=== PATIENT | male | born 1975 | race Caucasian/White ===

== ENCOUNTER 2023-07-13 15:29 | Emergency (ER) | payer OTHER, SELFPAY ==
[2023-07-13 15:33] VITALS: BP 175/116
--- NOTE | 2023-07-13 15:37 | ED.GENMED ---
History of Present Illness
<RICHA Hernandez - Last Filed: 07/13/23 18:46>
General
Chief Complaint: Allergic Reaction
Source: patient
Exam Limitations: none
Time Seen by Provider: 07/13/23 15:37
Nursing documentation reviewed up to this point in time: agreed with
Travel History
Have you had any contact with someone who has COVID-19?: No
Do you have any symptoms of coronavirus? Fever > 100 degrees, chills, cough, shortness of breath, sore throat, loss of taste or smell, muscle aches, or headache?: No
History of Present Illness
History of Present Illness:
47-year-old male presents to the ER for evaluation. Patient reports he woke up this morning and felt that his job was in spasm, especially the left side of his jaw. He is on Haldol 5 mg every day but believes he took 2 yesterday and may be 2
today. He has been able to eat and drink today . He complains of jaw pain/spasm sensation .
Past History
<RICHA Hernandez - Last Filed: 07/13/23 18:46>
Past History
ED Past Medical History: GERD, Psychiatric (Anxiety, Depression) and Other (Spinal stenosis, Back and neck pain, Sciatic Tingling arms and legs, Ulcers)
ED Past Surgical History: Orthopedic (Left wrist surgery) and Other (Hernia repair)
Social History
Tobacco: Former smoker
Alcohol: Occasional
Drug: None
Personal: Single
Living: with family
Review of Systems
<RICHA Hernandez - Last Filed: 07/13/23 18:46>
Review of Systems
Allergies reviewed?: Yes
All Other Systems: ROS reviewed and negative except as documented in HPI and ROS
Constitutional: Reports no symptoms; Denies fever, fatigue or chills
EENT: Reports other (jaw pain )
Respiratory: Reports no symptoms; Denies trouble breathing
Cardiac: Reports no symptoms
ABD/GI: Reports no symptoms; Denies abdominal pain, nausea or vomiting
: Reports no symptoms
Musculoskeletal: Reports no symptoms
Skin: Reports no symptoms
Neurological: Reports no symptoms
Psychiatric: Reports no symptoms
Phy Exam
<RICHA Hernandez - Last Filed: 07/13/23 18:46>
General Physical Exam
General Presentation: no apparent distress
General age: appears stated age
General Skin: warm and dry
General Habitus: normal
General Mental: alert
General Hydration: appears well hydrated
ENT Exam
ENT Exam: other (pt's jaw in a spasm;however pt able to open mouth )
Cardiovascular Exam
Cardiovascular Exam: tachycardia
Pulmonary Exam
Pulmonary Exam: lungs clear and no respiratory distress
Neurological Exam
Neurological Exam: alert and oriented x3
Musculoskeletal Exam
Musculoskeletal Exam: full ROM
Skin Exam
Skin Exam: normal color and warm/dry
Psychiatric Exam
Psychiatric Exam: normal mood/affect
Course
<RICHA Hernandez - Last Filed: 07/13/23 18:46>
Orders/Labs/Results
Orders:
Orders
07/13/23 15:45
Diphenhydramine [Benadryl] 50 mg .ROUTE .STK-MED ONE
07/13/23 15:51
0.9% Sodium Chloride 1000 ml [Nss] 1,000 ml IV BOLUS
diazePAM [Valium Injection] 5 mg IV NOW STA
07/13/23 16:17
Diphenhydramine [Benadryl] 25 mg IV NOW STA
Vital Signs
Initial and Last Documented VS:
Initial Vital Signs
Temp Pulse Resp BP Pulse Ox
98.5 F 124 16 175/116 98
07/13/23 15:33 07/13/23 15:33 07/13/23 15:33 07/13/23 15:33 07/13/23 15:33
Last Documented Vital Signs
Temp Pulse Resp BP Pulse Ox
98.5 F 88 20 144/102 95
07/13/23 15:33 07/13/23 16:49 07/13/23 15:55 07/13/23 18:00 07/13/23 18:00
<Jovan Mensah DO - Last Filed: 07/13/23 16:05>
Orders/Labs/Results
Orders:
Orders
07/13/23 15:45
Diphenhydramine [Benadryl] 50 mg .ROUTE .STK-MED ONE
07/13/23 15:51
0.9% Sodium Chloride 1000 ml [Nss] 1,000 ml IV BOLUS
diazePAM [Valium Injection] 5 mg IV NOW STA
07/13/23 16:17
Diphenhydramine [Benadryl] 25 mg IV NOW STA
Vital Signs
Initial and Last Documented VS:
Initial Vital Signs
Temp Pulse Resp BP Pulse Ox
98.5 F 124 16 175/116 98
07/13/23 15:33 07/13/23 15:33 07/13/23 15:33 07/13/23 15:33 07/13/23 15:33
Last Documented Vital Signs
Temp Pulse Resp BP Pulse Ox
98.5 F 88 20 144/102 95
07/13/23 15:33 07/13/23 16:49 07/13/23 15:55 07/13/23 18:00 07/13/23 18:00
<RICHA Hernandez - Last Filed: 07/13/23 18:46>
MDM/Problems Addressed
Differential Diagnosis Includes:
Not limited to adverse reaction from medication, tardive dyskinesia
MDM/Problems Addressed:
Symptoms of likely tardive dyskinesia patient nontoxic has been able to eat and drink today is able to open mouth no obvious dislocation. Patient evaluated attending will try IV Valium.
Patient had relief after Valium but then developed same symptoms. Patient was given IV Benadryl here which did improve patient's symptoms. He was monitored here feeling much better tardive dyskinesia symptoms resolved. Will DC home. Will have
patient only taking Haldol as prescribed however he reports he probably will not take it. Instructions also given for patient to take Benadryl 25 mg every 6 hours as needed for the next 24 hours and closely follow PCP.
<RICHA Hernandez - Last Filed: 07/13/23 18:46>
*Critical Care Note
Total Time (30-74mins, 75-104mins- exclusive of procedures): Not Applicable
ED Attending Note
<RICHA Hernandez - Last Filed: 07/13/23 18:46>
-
Portions of this chart may have been created with voice recognition software.� Occasional wrong word or��sound alike� substitutions may have occurred due to the inherent limitations of voice recognition software.
<Jovan Mensah DO - Last Filed: 07/13/23 16:05>
ED Attending Note
Patient seen and examined by attending physician: Yes
I performed the substantive portion of visit, reviewed & personally made and approve the management plan that is documented in note by myself or LEVI.: Yes
ED Attending Note:
I have seen and evaluated the patient with a [id number] encounter. I have spoken to the advance practicer provider and involved in the medical history, the physical exam, medical decision making.
Evaluation and management service: agree unless noted differently below.
Results interpretation: agree unless noted differently below.
Focused HPI: 47-year-old male presenting with spasms in his mouth and neck. This occurred after increasing his Haldol dosing
Physical exam: Uncomfortable, spasm to right TMJ and right neck. Patient able to move his jaw without difficulty
Medical Decision Making: Will give dose of Valium. If Valium is not helping, will treat as possible dystonic reaction with Benadryl
Discharge Plan
Departure
Patient Disposition: Home (Routine Discharge)
Date of Disposition: 07/13/23
Time of Disposition: 18:27
Patient with high blood pressure during this ER visit?: Yes
Condition: Fair
Covid-19: Not Applicable
Discharge Problem:
Tardive dyskinesia
Instructions: Tardive dyskinesia
Prescriptions:
No Action
linezolid [Zyvox] 600 mg tablet
600 mg PO Q12H 7 Days Qty: 14 0RF
acetaminophen [Pain Relief ES (acetaminophen)] 500 mg Tablet
1,000 mg PO TIDPRN PRN (Reason: pain) 5 Days Qty: 30 0RF
oxycodone 5 mg tablet
5 mg PO BID PRN (Reason: severe pain) 5 Days Qty: 10 0RF
Referrals:
Ana Ricardo MD [Family Provider] -
Activity Restrictions/Additional Instructions:
Only take regular dose of Haldol.
Benadryl 25 mg orally every 6 hrs as needed.
Follow up with your PCP in the next 1-2 days. Return if any worsening of symptoms.
Interventions
Interventions:
*Risk Screen - Suicide Last Done: 07/13/23 15:33
*General Assessment Last Done: 07/13/23 15:33
*Neglect/Abuse Screening Last Done: 07/13/23 15:33
*ED COVID-19 Vaccine History Last Done: 07/13/23 15:33
ED- Cardiac Assessment Last Done: 07/13/23 15:55
ED- Pulmonary Assessment Last Done: 07/13/23 15:55
ED-Skin Assessment Last Done: 07/13/23 15:55
[2023-07-13] MEDS: VALIUM INJECTION 5 MG IV (15:53)
[2023-07-13] MEDS: NSS 1000 IV (15:54)
[2023-07-13] MEDS: BENADRYL 25 MG IV (16:19)
[2023-07-13 16:34] VITALS: BP 142/97
[2023-07-13 17:00] VITALS: BP 137/96
[2023-07-13 18:00] VITALS: BP 144/102
[2023-07-13] MEDS: BENADRYL 50 MG PO (19:31)
== END 2023-07-13 18:53 | disposition home or self-care (01) ==
LOC: EMR 15:29
PROVIDERS: EMERGENCY PHYSICIAN Student in an Organized Health Care Education/Training Program; FAMILY PHYSICIAN Family Medicine
DX: G24.01 Drug induced subacute dyskinesia (principal); T43.4X5A Adverse effect of butyrophenone and thiothixene neuroleptics, initial encounter; Z87.891 Personal history of nicotine dependence
CPT/HCPCS: 99284; 96374; 96375; 96361